=== PATIENT | female | born 1975 | race Caucasian/White ===

== ENCOUNTER 2022-12-27 11:19 | Emergency (ER) | payer MEDICAID ==
[2022-12-27 11:44] VITALS: BP 170/104; PULSE 75
[2022-12-27] MEDS ORDERED: Ketorolac 15 MG/ML SDV IM ONE (11:46)
[2022-12-27] MEDS ORDERED: oxyCODONE 5 MG Tab PO ONE (11:49)
== END 2022-12-27 12:38 | disposition home or self-care (01) ==
LOC: JP.ED 11:19
DX: S93.402A Sprain of unspecified ligament of left ankle, initial encounter (principal); Z79.899 Other long term (current) drug therapy; Z88.1 Allergy status to other antibiotic agents; X50.0XXA Overexertion from strenuous movement or load, initial encounter
CPT/HCPCS: 73610; 96372; 99283; A9270; J1885; 99282